=== PATIENT | female | born 1965 | race Caucasian/White ===

== ENCOUNTER → 2016-11-27 | Outpatient (CLI) | payer MEDICAID ==
[~2016-11-27] MED LIST: ACYC-114 PO; DIAZ5TAB4 PO; ESTR1TAB5 PO; HYDR-3138 PO; SERT50TA5 PO
== END | disposition home or self-care (01) ==
LOC: STAR 14:17
PROVIDERS: ATTEND Otolaryngology
DX: Z02.9 Encounter for administrative examinations, unspecified (principal)

== ENCOUNTER 2016-12-09 08:56 | Day surgery (SDC) | payer MEDICAID ==
[2016-11-27 14:44] VITALS: BP 147/84
[~2016-12-09] VITALS: Ht 147.3 cm; Wt 49.0 kg
[~2016-12-09 08:56] MED LIST changes: +BACITRACIN OINT 500U/GM, 15 GM ONE; +EPINEPHRINE TOPICAL SOLN 1 MG/ML, 30ML ONE; +FENTANYL PF 250 MCG/5ML ONE; +FLUORESCEIN OPHTHALMIC 1 MG STRIP ONE; +LIDOCAINE 1%-EPI 1:100K, 50ML ONE; +MIDAZOLAM 1 MG/ML, 2ML ONE; +OXYMETAZOLINE NASAL SPRAY 0.05%, 15ML ONE
[2016-12-09] MEDS ORDERED: LACTATED RINGERS 1,000 ML IV SCH (09:22)
[2016-12-09 09:25] VITALS: BP 147/84
[2016-12-09] MEDS ORDERED: FENTANYL PF 100 MCG/2ML ONE (12:11)
[2016-12-09] MEDS ORDERED: ACETAMINOPHEN 650 MG/20.3 ML UDC ONE (12:11)
[2016-12-09] MEDS ORDERED: OXYcodone 5 MG/5 ML ORAL.SOL UDC ONE (12:12)
[2016-12-09] MEDS ORDERED: HYDROcodone/APAP 7.5-325MG/15ML UDC ONE (12:16)
[2016-12-09] MEDS: FENTANYL PF 100 MCG/2ML IV PRN ×3 (12:20→12:35)
[2016-12-09] MEDS ORDERED: LABETALOL 5MG/ML, 20ML IV PRN (12:30)
[2016-12-09] MEDS ORDERED: HYDROmorphone 1 MG/ML, 1ML IV PRN (12:30)
[2016-12-09] MEDS ORDERED: hydrALAzine 20 MG/ML, 1ML IV PRN (12:30)
[2016-12-09] MEDS ORDERED: HYDROcodone/APAP 7.5-325MG/15ML UDC PO PRN (12:30)
[2016-12-09] MEDS ORDERED: OXYcodone 5 MG/5 ML ORAL.SOL UDC PO PRN (12:30)
[2016-12-09] MEDS ORDERED: ONDANSETRON 2MG/ML, 2ML IVPush PRN (12:30)
[2016-12-09] MEDS ORDERED: METOCLOPRAMIDE 5 MG/ML, 2ML IV PRN (12:30)
[2016-12-09] MEDS ORDERED: ACETAMINOPHEN 325 MG TABLET PO PRN (12:30)
[2016-12-09] MEDS ORDERED: ROCURONIUM 10 MG/ML ONE (15:30)
[2016-12-09] MEDS ORDERED: DEXAMETHASONE 4 MG/ML, 1ML ONE (15:30)
[2016-12-09] MEDS ORDERED: CEFAZOLIN 1,000 MG ONE (15:30)
[2016-12-09] MEDS ORDERED: ONDANSETRON 2MG/ML, 2ML ONE (15:30)
[2016-12-09] MEDS ORDERED: PROPOFOL 10 MG/ML, 20ML ONE (15:30)
== END 2016-12-09 14:30 | disposition home or self-care (01) ==
LOC: OUT 08:56
PROVIDERS: ATTEND Otolaryngology
DX: J32.2 Chronic ethmoidal sinusitis (principal); J32.0 Chronic maxillary sinusitis; Z82.49 Family history of ischemic heart disease and other diseases of the circulatory system
CPT/HCPCS: 31255; 31267; 87070; 87075; 87102; 87205; 88304; J0690; J1100; J2250; J2405; J2704; J3010; J7120

== ENCOUNTER → 2018-04-14 | Outpatient (CLI) | payer OTHER ==
[~2018-04-14] MED LIST changes: -BACITRACIN OINT 500U/GM, 15 GM ONE; -EPINEPHRINE TOPICAL SOLN 1 MG/ML, 30ML ONE; -FENTANYL PF 250 MCG/5ML ONE; -FLUORESCEIN OPHTHALMIC 1 MG STRIP ONE; -HYDR-3138 PO; +HYDR-3237 PO; -LIDOCAINE 1%-EPI 1:100K, 50ML ONE; -MIDAZOLAM 1 MG/ML, 2ML ONE; -OXYMETAZOLINE NASAL SPRAY 0.05%, 15ML ONE
== END | disposition home or self-care (01) ==
LOC: CFH 11:00
PROVIDERS: ATTEND Family Medicine
DX: Z12.31 Encounter for screening mammogram for malignant neoplasm of breast (principal)
CPT/HCPCS: 77067

== ENCOUNTER 2019-08-22 15:44 | Emergency (ER) | payer OTHER ==
[~2019-08-22] VITALS: Ht 147.3 cm; Wt 60.7 kg
[~2019-08-22 15:44] MED LIST changes: +SERT50TA28 PO; -SERT50TA5 PO
[2019-08-22 16:29] LABS: BASOPHILS # (AUTO) 0.04 x10^3/uL (0-0.1); BASOPHILS % (AUTO) 0 % (0-1); EOSINOPHILS # (AUTO) 0.22 x10^3/uL (0-0.4); EOSINOPHILS % (AUTO) 3 % (1-7); LYMPHOCYTES # (AUTO) 1.74 x10^3/uL (1-3.4); LYMPHOCYTES % (AUTO) 20 % (22-44); MD NO; MEAN CORPUSCULAR HEMOGLOBIN 26.6 pg (27.0-34.8); MEAN CORPUSCULAR HGB CONC 32.2 g/dL (32.4-35.8); MEAN CORPUSCULAR VOLUME 82.8 fL (80-100); MONOCYTES # (AUTO) 0.64 x10^3/uL (0.2-0.8); MONOCYTES % (AUTO) 7 % (2-9); NEUTROPHILS % (AUTO) 69 % (42-75); PLATELET COUNT 534 x10^3/uL (130-400); RED BLOOD COUNT 4.81 x10^6/uL (3.82-5.3); RED CELL DISTRIBUTION WIDTH 14.3 % (9.6-15.2)
[2019-08-22 16:40] LABS: ALBUMIN 3.5 g/dL (3.4-5.0); ANION GAP 5 mmol/L (5-15); CALCIUM 9.9 mg/dL (8.5-10.1); CHLORIDE 106 mmol/L (98-107); CREATININE 0.95 mg/dL (0.55-1.02)
--- NOTE | 2019-08-22 19:00 | NUR ---
AMBULATORY TO ED ROOM 30 W/ SLOW LIMPING GAIT
--- NOTE | 2019-08-22 19:07 | NUR ---
AMBULATORY TO & FROM [facility]. VOIDED SPECIMEN PROVIDED.
--- NOTE | 2019-08-22 19:21 | NUR ---
BETTY GAYTAN FOR EXAM. PT C/O LEG PAIN & SWELLING X 1-1/2 MONTHS. PAIN WORSENS W/ SITTING - STARTS IN HIP AREA. BILAT KNEE SWELLING, LT ANKLE SWOLLEN; SKIN INTACT, NO BRUSING NOTED, PEDAL PULSES STRONG & REG BILAT. INTERMITTENT CANE USE R/T "EQUILIBRIUM PROBLEM" Addendum: 08/22/19 at 1925 by MARY REPORTS CHEST PRESSURE, "FEELS LIKE A 50LB WEIGHT IS SITTING ON MY CHEST" X 1 WEEK, INTERMITTENT. PT ABLE TO SPEAK IN COMPLETE SENTENCES W/OUT DIFFICULTY. RESP UNLABORED, SKIN WNL. Addendum: 08/22/19 at 2030 by MARY CORRECTION: BETTY GUPTA. JOHN GAYTAN
[2019-08-22 20:20] VITALS: BP 134/82
== END 2019-08-22 20:47 | disposition home or self-care (01) ==
LOC: ED 20:04
DX: M25.562 Pain in left knee (principal); M25.561 Pain in right knee
CPT/HCPCS: 36415; 71046; 80048; 82040; 83880; 85025; 93005; 93970; 99284